=== PATIENT | male | born 1970 | race Caucasian/White ===

== ENCOUNTER 2024-02-28 14:32 | Observation (INO) | payer BC ==
[2024-02-28] MEDS ORDERED: FUROSEMIDE 40 MG/4 ML VIAL ONE (15:03)
[2024-02-28 16:10] LABS: Absolute Basophils 0.1 K/uL (0-0.5); Absolute Eosinophils 0.2 K/uL (0-0.5); Absolute Lymphocytes (CBC) 1.2 K/uL (0.7-4.9); Absolute Monocytes 0.8 K/uL (0.1-1.3); Absolute Neutrophil 4.2 K/uL (1.8-8.0); Basophils % 1.3 % (0-1.3); Eosinophils % 3.3 % (0-4.4); Hematocrit 42.6 % (39.6-49.0); Hemoglobin 14.7 g/dL (13.6-17.9); Lymphocytes % 18.7 % (15.3-44.8); MCH 30.2 pg (27.0-35.0); MCHC 34.5 g/dL (32.0-36.0); MCV 87.6 fL (80-100); MPV 8.2 fL (7.6-11.3); Monocytes % 12.1 % (3.3-12.3); Neutrophils % 64.6 % (41.7-73.7); Nucleated Red Blood Cells % 0.1 % (0-0); Platelets 286 thou/uL (152-406); RBC Red Blood Cell Count 4.87 M/uL (4.33-5.43); Red Cell Distribution Width 13.5 % (12.1-15.2)
[2024-02-28 16:13] LABS: PT Prothrombin Time 12.5 SECONDS (9.4-12.5); Protime INR 1.12
[2024-02-28 16:33] LABS: Albumin 3.7 g/dL (3.4-5.0); Anion Gap 9.8 mEq/L (5.0-15.0); Bilirubin Direct 0.2 mg/dL (0-0.2); Bilirubin Indirect, Calculated 0.4 mg/dL (0.2-0.8); Bilirubin Total 0.6 mg/dL (0.2-1.0); Globulin 3.7 g/dL (2.3-3.5); Magnesium 2.1 mg/dL (1.6-2.4); Potassium 2.8 mEq/L (3.5-5.1); Protein, Total 7.4 g/dL (6.4-8.2); Troponin High Sensitivity 7.9 pg/mL (<58.9)
--- NOTE | 2024-02-28 17:21 | RAD REPORT ---
EXAM DESCRIPTION: Lisbeth Single View02/28/2024 3:26 pm CLINICAL HISTORY: Chest pain;Dyspnea COMPARISON: No comparisons TECHNIQUE: Portable AP view of the chest. FINDINGS: The lungs are clear. No pneumothorax or effusion. The cardiomediastinal contours are unre markable. IMPRESSION: No acute cardiopulmonary process.
[2024-02-28] MEDS ORDERED: POTASSIUM 25 MEQ EFFERV TAB ONE (17:42)
[2024-02-28] MEDS ORDERED: ACETAMINOPHEN 500 MG TAB ONE (17:42)
--- NOTE | 2024-02-28 17:52 | ER ---
Nurse's Notes [facility] Name: Fantasma Calderón Age: 53 yrs Sex: Male : 1970 Arrival Date: 02/28/2024 Time: 14:32 Bed 14 Private MD: Diagnosis: Chest pain, unspecified;Acute diastolic (congestive) heart failure;Hypokalemia Presentation: 02/27 14:38 Chief complaint: Patient states: Pt states Lane leg and feet swelling with difficulty dd2 walking and pain. Pt states coughing up green phlegm and having chest pain. Coronavirus screen: At this time, the client does not indicate any symptoms associated with coronavirus-19. Ebola Screen: No symptoms or risks identified at this time. Initial Sepsis Screen: Does the patient meet any 2 criteria? No. Patient's initial sepsis screen is negative. Does the patient have a suspected source of infection? No. Patient's initial sepsis screen is negative. Risk Assessment: Do you want to hurt yourself or someone else? Patient reports no desire to harm self or others. Onset of symptoms is unknown. 14:38 Method Of Arrival: Ambulatory dd2 14:38 Acuity: PRESTON 3 dd2 Triage Assessment: 14:41 General: Appears in no apparent distress. Behavior is calm, cooperative. Pain: dd2 Complains of pain in chest. Cardiovascular: Reports chest pain. Historical: - Allergies: 14:41 No Known Allergies; dd2 - PMHx: 14:41 Hypertensive disorder; dd2 - PSHx: 14:41 Repair of inguinal hernia; dd2 - Immunization history:: Adult Immunizations unknown. - Infectious Disease History:: Denies. - Social history:: Smoking status: Patient denies any tobacco usage or history of. Screenin:54 [facility] ED Fall Risk Assessment (Adult) History of falling in the last 3 months, cm10 including since admission No falls in past 3 months (0 pts) Confusion or Disorientation No (0 pts) Intoxicated or Sedated No (0 pts) Impaired Gait No (0 pts) Mobility Assist Device Used No (0 pt) Altered Elimination No (0 pt) Score/Fall Risk Level 0 - 2 = Low Risk Oriented to surroundings, Maintained a safe environment, Hourly rounding (assess needs \T\ fall precautionary measures) done. Abuse screen: Denies threats or abuse. Denies injuries from another. Nutritional screening: No deficits noted. Tuberculosis screening: No symptoms or risk factors identified. Assessment: 15:20 General: Appears in no apparent distress. Behavior is calm, cooperative. Pain: kj2 Complains of pain in chest and left leg and right leg Pain does not radiate. Pain currently is 6 out of 10 on a pain scale. Pain began 2-3 days ago. Neuro: Level of Consciousness is awake, alert, obeys commands, Oriented to person, place, time, situation. 17:01 Reassessment: Patient appears in no apparent distress at this time. Patient and/or kj2 family updated on plan of care and expected duration. Pain level reassessed. Patient is alert, oriented x 3, equal unlabored respirations, skin warm/dry/pink. 19:10 Reassessment: Patient and/or family updated on plan of care and expected duration. Pain rg5 level reassessed. Patient is alert, oriented x 3, equal unlabored respirations, skin warm/dry/pink. Patient states feeling better. Vital Signs: 14:38 BP 133 / 75; Pulse 80; Resp 16; Temp 97.2; Pulse Ox 98% ; dd2 15:20 BP 123 / 82; Pulse 75; Resp 18; Temp 98.7; Pulse Ox 98% on R/A; Weight 112.94 kg; kj2 Height 6 ft. 3 in. ; Pain 6/10; 17:33 BP 122 / 75; Pulse 68; Resp 18; Pulse Ox 98% on R/A; kj2 19:10 BP 124 / 83; Pulse 64; Resp 17; Temp 98; Pulse Ox 96% on R/A; rg5 19:12 BP 124 / 83; Pulse 67; Resp 18; Temp 98.2; Pulse Ox 96% on R/A; kj2 15:20 Body Mass Index 31.12 (112.94 kg, 190.5 cm) kj2 15:20 Pain Scale: Adult kj2 ED Course: 14:34 Patient arrived in ED. im 14:34 Liset Nelson PA-C is PHCP. sb4 14:34 Clinton Neri MD is Attending Physician. sb4 14:41 Triage completed. dd2 14:41 Arm band placed on right wrist. Patient placed in an exam room, on a stretcher, on dd2 emergency medical technician basic, on pulse oximetry. 14:59 Florencia Ng, RN is Primary Nurse. kj2 15:22 No provider procedures requiring assistance completed. Missed attempt(s): 20 gauge in kj2 right antecubital area. 15:28 XRAY Chest (1 view) In Process Unspecified. EDMS 15:53 Patient has correct armband on for positive identification. Placed in gown. Bed in low cm10 position. Call light in reach. Side rails up X2. Provided Education on: ER process and procedures.. Client placed on continuous cardiac and pulse oximetry monitoring. NIBP monitoring applied. ship's cook on. 15:53 Initial lab(s) drawn, by me, held in ED. Inserted saline lock: 20 gauge in left cm10 antecubital area, using aseptic technique. Blood collected. Flushed with 10 mL NS. Patient maintains SpO2 saturation greater than 95% on room air. 16:04 Warm blanket given. cm10 17:50 Douglas Ballard MD is Hospitalizing Provider. sb4 18:11 1811 Attempted initial assessment, patient being transported to CT .1822 CM met with ane patient and his Rolf at the bedside in the ED exam room. Patient identified by name and . Demographic sheet confirmed. Patient states he lives with his Rolf and their 2 children in a single story home. Patient reports prior to admission, he performs ADLs independently and without physical limitations. No HH, DME , home oxygen or other medical services at this time. MPOA service requested. MPOA document completed at the bedside. 's preferred plan is to return home upon discharge and Rolf states she will transport him home. CM team will continue to follow and coordinate care. 18:18 Head Brain Wo Cont CT In Process Unspecified. EDMS 19:10 Awaiting bed assignment. rg5 19:10 1910 MPOA scanned into the EMR in [employer]. ane 19:10 Patient admitted, IV remains in place. rg5 19:15 Report given to CRISTA Reyes. kj2 Administered Medications: 15:51 Drug: Furosemide IVP 40 mg IVP once; give over 2 minutes Route: IVP; Site: left cm10 antecubital; 16:42 Follow up: Response: No adverse reaction 10 17:47 Drug: Potassium PO Effervescent Tablet 50 mEq PO once; dissolve in 4 ounces of water or kj2 juice Route: PO; 18:30 Follow up: Response: No adverse reaction kj2 17:47 Drug: Acetaminophen PO 1000 mg PO once Route: PO; kj2 18:30 Follow up: Response: No adverse reaction; Pain is decreased kj2 Medication: 15:54 VIS not applicable for this client. cm10 Outcome: 17:51 Decision to Hospitalize by Provider. sb4 20:20 Admitted to Med/surg accompanied by tech, via wheelchair, rg5 20:20 Condition: stable 20:20 Demonstrated understanding of 20:21 Patient left the ED. rg5 Signatures: Dispatcher [employer] EDMS Liset Nelson PA-C PAJennifer sb4 Naty Gage Clarissa RN RN cm10 Eric Pavon RN RN rg5 Florencia Ng, RN RN kj2 Reba Varma RN ESTRELLA Farmer RN RN dd2 Corrections: (The following items were deleted from the chart) 14:45 14:38 Chief complaint: Patient states: Pt states Lane leg and feet swelling with dd2 difficulty walking and pain. Pt states coughing up green phlegm. dd2
--- NOTE | 2024-02-28 17:52 | EDPHYS ---
Physician Documentation [facility] Name: Fantasma Calderón Age: 53 yrs Sex: Male : 1970 Arrival Date: 02/28/2024 Time: 14:32 Bed 14 Private MD: ED Physician Clinton Neri HPI: 02/27 14:59 This 53 yrs old Male presents to ER via Ambulatory with complaints of Chest Pain, Leg sb4 Swelling. 14:59 intermittent chest pain for quite some time now, recently started experiencing lower sb4 extremity swelling, corona, and orthopnea. went to [facility] last week, admitted for a day, discharged with no new diagnoses. states the swelling in his legs has worsened. was told to follow up with cardiology in a month. Historical: - Allergies: 14:41 No Known Allergies; dd2 - PMHx: 14:41 Hypertensive disorder; dd2 - PSHx: 14:41 Repair of inguinal hernia; dd2 - Immunization history:: Adult Immunizations unknown. - Infectious Disease History:: Denies. - Social history:: Smoking status: Patient denies any tobacco usage or history of. ROS: 14:59 Constitutional: Negative for fever, chills, and weight loss, sb4 14:59 Cardiovascular: Positive for chest pain, edema, 14:59 Respiratory: Positive for dyspnea on exertion, orthopnea, 14:59 All other systems are negative, Exam: 15:00 Constitutional: This is a well developed, well nourished patient who is awake, alert, sb4 and in no acute distress. Head/Face: Normocephalic, atraumatic. Eyes: Extra-ocular motions intact. Periorbital areas with no swelling, redness, or edema. ENT: Mucous membranes moist. Respiratory: Lungs have equal breath sounds bilaterally, clear to auscultation and percussion. No rales, rhonchi or wheezes noted. No increased work of breathing, no retractions or nasal flaring. Abdomen/GI: Soft, non-tender, no distension. Skin: Warm, dry with normal turgor. Normal color with no rashes, no lesions, and no evidence of cellulitis. 15:00 Cardiovascular: Rate: normal, Rhythm: regular, Pulses: no pulse deficits are appreciated, Edema: pedal edema, that is moderate, ankle edema, that is moderate, Vital Signs: 14:38 BP 133 / 75; Pulse 80; Resp 16; Temp 97.2; Pulse Ox 98% ; dd2 15:20 BP 123 / 82; Pulse 75; Resp 18; Temp 98.7; Pulse Ox 98% on R/A; Weight 112.94 kg; kj2 Height 6 ft. 3 in. ; Pain 6/10; 17:33 BP 122 / 75; Pulse 68; Resp 18; Pulse Ox 98% on R/A; kj2 19:10 BP 124 / 83; Pulse 64; Resp 17; Temp 98; Pulse Ox 96% on R/A; rg5 19:12 BP 124 / 83; Pulse 67; Resp 18; Temp 98.2; Pulse Ox 96% on R/A; kj2 15:20 Body Mass Index 31.12 (112.94 kg, 190.5 cm) kj2 15:20 Pain Scale: Adult kj2 MDM: 14:34 Patient medically screened. sb4 17:51 Data reviewed: vital signs, nurses notes, lab test result(s), EKG, radiologic studies, sb4 and as a result, I will admit patient. Consideration of Admission/Observation Patient was admitted/placed on observation. Counseling: I had a detailed discussion with the patient and/or guardian regarding the historical points, exam findings, and any diagnostic results supporting the discharge/admit diagnosis, lab results, radiology results, the need for further work-up and treatment in the hospital. 02/27 14:56 Order name: Basic Metabolic Panel; Complete Time: 16:34 sb4 02/27 14:56 Order name: CBC with Diff; Complete Time: 16:12 sb4 02/27 14:56 Order name: LFT's; Complete Time: 16:34 sb4 02/27 14:56 Order name: Magnesium; Complete Time: 16:34 sb4 02/27 14:56 Order name: NT PRO-BNP; Complete Time: 16:34 sb4 02/27 14:56 Order name: PT-INR; Complete Time: 16:14 sb4 02/27 14:56 Order name: Troponin HS; Complete Time: 16:34 sb4 02/27 19:01 Order name: Urinalysis w/ reflexes EDMS 02/27 19:01 Order name: CBC with Automated Diff EDMS 02/27 19:01 Order name: CBC with Automated Diff EDMS 02/27 19:01 Order name: Comprehensive Metabolic Panel EDMS 02/27 19:01 Order name: Comprehensive Metabolic Panel EDMS 02/27 19:01 Order name: Troponin High Sensitivity EDMS 02/27 19:01 Order name: Troponin High Sensitivity EDMS 02/27 19:01 Order name: Troponin High Sensitivity EDMS 02/27 19:01 Order name: Troponin High Sensitivity EDMS 02/27 14:56 Order name: XRAY Chest (1 view); Complete Time: 17:22 sb4 02/27 17:58 Order name: Head Brain Wo Cont CT; Complete Time: 18:54 sb4 02/27 14:56 Order name: EKG; Complete Time: 14:56 sb4 02/27 14:56 Order name: Cardiac monitoring; Complete Time: 15:53 sb4 02/27 14:56 Order name: EKG - Nurse/Tech; Complete Time: 15:53 sb4 02/27 14:56 Order name: IV Saline Lock; Complete Time: 15:53 sb4 02/27 14:56 Order name: Labs collected and sent; Complete Time: 15:53 sb4 02/27 14:56 Order name: O2 Per Protocol; Complete Time: 15:53 sb4 02/27 14:56 Order name: O2 Sat Monitoring; Complete Time: 15:53 sb4 02/27 15:53 Order name: Misc. Order: Recollect all labs; Complete Time: 15:57 cm10 EC:49 Rate is 70 beats/min. Rhythm is regular, Normal Sinus Rhythm. MT interval is normal at sb4 132 msec. QRS interval is normal at 100 msec. QT interval is normal at 406 msec. No Q waves. T waves are Normal. No ST changes noted. Clinical impression: Normal ECG and No evidence of ischemia. Interpreted by me. Reviewed by me. Administered Medications: 15:51 Drug: Furosemide IVP 40 mg IVP once; give over 2 minutes Route: IVP; Site: left cm10 antecubital; 16:42 Follow up: Response: No adverse reaction cm10 17:47 Drug: Potassium PO Effervescent Tablet 50 mEq PO once; dissolve in 4 ounces of water or kj2 juice Route: PO; 18:30 Follow up: Response: No adverse reaction kj2 17:47 Drug: Acetaminophen PO 1000 mg PO once Route: PO; kj2 18:30 Follow up: Response: No adverse reaction; Pain is decreased kj2 Disposition Summary: 02/28/24 17:51 Hospitalization Ordered Notes: Hospitalization Status: Observation sb4 Provider: Douglas Ballard Location: Telemetry/MedSurg (observation) sb4 Condition: Fair sb4 Problem: an ongoing problem sb4 Symptoms: have improved sb4 Bed/Room Type: Standard sb4 Room Assignment: 203(02/28/24 19:08) rv1 Diagnosis - Chest pain, unspecified sb4 - Acute diastolic (congestive) heart failure sb4 - Hypokalemia sb4 Forms: - Medication Reconciliation Form sb4 - SBAR form sb4 - Leadership Thank You Letter sb4 Addendum: 03/03/2024 16:09 I was immediately available for consultation during this patient's visit. I did not e c2 personally see the patient or discuss the patient with the KIERSTEN. . Signatures: Dispatcher [employer] Liset Ann PA-C PA-C sb4 Jessica Mccarty rv1 Jackie Delgado, RN RN cm10 Clinton Neri MD MD ec2 Florencia Ng RN RN kj2 ESTRELLA GARCIA RN RN dd2 Corrections: (The following items were deleted from the chart) 02/27 14:56 14:56 BASIC METABOLIC PANEL+C.LAB.BRZ ordered. EDMS EDMS 14:56 14:56 CBC+H.LAB.BRZ ordered. EDMS EDMS 14:56 14:56 HEPATIC FUNCTION+C.LAB.BRZ ordered. EDMS EDMS 14:56 14:56 MAGNESIUM+C.LAB.BRZ ordered. EDMS EDMS 14:56 14:56 PROBNP+C.LAB.BRZ ordered. EDMS EDMS 14:56 14:56 PROTIME (+INR)+COAG.LAB.BRZ ordered. EDMS EDMS 14:56 14:56 Troponin High Sensitivity+C.LAB.BRZ ordered. EDMS EDMS 19:08 17:51 sb4 rv1
--- NOTE | 2024-02-28 18:50 | RAD REPORT ---
EXAM DESCRIPTION: CT - Head Brain Wo Cont - 02/28/2024 6:16 pm CLINICAL HISTORY: HEADACHE COMPARISON: No comparisons TECHNIQUE: Noncontrast head CT images were obtained without IV contrast. Multiplanar reformats were generated and reviewed. All CT scans are performed using dose optimization technique as appropriate and may include automated exposure control or mA/KV adjustment according to patient size. FINDINGS: No intracranial hemorrhage, mass, or edema. Midline structures are unremarkable. Normal ventricular caliber for age. Willingham-white matter differentiation is preserved, without evidence of acute infarct. No abnormal extra- axial fluid collections. Mastoid air cells moderate scattered mucosal thickening throughout the paranasal sinuses. No acute bony findings. IMPRESSION: No evidence of an acute intracranial process.
[2024-02-28] MEDS ORDERED: ONDANSETRON 4 MG/2 ML VIAL IV PRN (18:57)
[2024-02-28] MEDS ORDERED: ACETAMINOPHEN 325 MG TABLET PO PRN (18:57)
--- NOTE | 2024-02-28 19:00 | P.HP ---
Certification for Inpatient Patient admitted to: Observation With expected LOS: <2 Midnights Practitioner: I am a practitioner with admitting privileges, knowledge of patient current condition, hospital course, and medical plan of care. Services: Services provided to patient in accordance with Admission requirements found in Title 42 Section 412.3 of the Code of Federal Regulations Patient History Date of Service: 02/28/24 Reason for admission: Chest Pain History of Present Illness: 53 yrs old Male with past medical history of hypertension who has been complaining of chest discomfort associated with shortness of breath and bilateral lower extremity swelling which has been going on for last 6 weeks and has been progressively worsening and was brought to ER. Patient has been diagnosed with hypertension and has been on amlodipine and hydrochlorothiazide. Patient started having shortness of breath which has progressively getting worse with orthopnea. Patient was seen in [facility] last week and was given nitrates, metoprolol and mild diuretics. Patient has been taking medications regularly but has not been improving his symptoms. Chest pain is retrosternal with radiation to left arm pressure-like feeling, 3 out of 10 in severity Shortness of breath is worse even with minimal exertion and also especially when lying down. Patient was assessed in the ER and is admitted for further management of acute chest pain and to rule out ACS Allergies No Known Allergies Allergy (Verified 02/28/24 21:18) Home medications list reviewed: Yes Home Medications: Allopurinol 300 mg PO DAILY 02/28/24 Aspirin [Aspirin EC 325 MG] 325 mg PO DAILY 02/28/24 Isosorbide Mononitrate [Isosorbide Mononitrate ER] 30 mg PO DAILY 02/28/24 Metoprolol Tartrate 25 mg PO BID 02/28/24 Omeprazole [Prilosec] 40 mg PO DAILY 02/28/24 - Past Medical/Surgical History Past Medical History: Reviewed- Non-Contributory -: HTN Past Surgical History: Reviewed- Non-Contributory - Family History Family History: Reviewed- Non-Contributory - Social History Smoking Status: Never smoker Review of Systems 10-point ROS is otherwise unremarkable Physical Examination - Vital Signs Temperature: 97.2 F Blood Pressure: 132/72 Pulse: 80 Respirations: 18 Pulse Ox (%): 95 - Physical Exam General: Alert, Oriented x3, Mild distress HEENT: Atraumatic, Normocephalic Neck: Supple, 2+ carotid pulse no bruit Respiratory: Clear to auscultation bilaterally, Normal air movement Cardiovascular: Normal pulses, Regular rate/rhythm, Normal S1 S2, Edema Capillary refill: <2 Seconds Gastrointestinal: Soft and benign, W/out hepatosplenomegaly Musculoskeletal: No clubbing, Swelling Integumentary: No rashes, No breakdown Neurological: Normal speech, Cranial nerves 3-12 intact Lymphatics: No axilla or inguinal lymphadenopathy - Studies Laboratory Data (last 24 hrs) 02/28/24 02/28/24 02/28/24 15:56 15:56 15:56 WBC 6.50 Hgb 14.7 Hct 42.6 Plt Count 286 PT 12.5 INR 1.12 Sodium 142 Potassium 2.8 L BUN 10 Creatinine 0.89 Glucose 97 Magnesium 2.1 Total Bilirubin 0.6 AST 18 ALT 28 Alkaline Phosphatase 60 Assessment and Plan - Plan Chest Pain to rule out ACS Will trend cardiac enzymes Will monitor telemetry Started on aspirin and statin EKG did not show any acute changes suggestive of ischemia Will get an echocardiogram Cardiology consult Acute on chronic CHF possibly systolic/diastolic Monitor closely on telemetry Started on aggressive diuresis Continue home medications Titrate as needed Will obtain an echocardiogram Cardiology consult Hypertension Antihypertensives titrated Continue home medications and titrate as needed Hyperlipidemia Continue statin GI/DVT prophylaxis Advanced directive full code Discharge Plan: Home Plan to discharge in: 48 Hours - Advance Directives Does patient have a Living Will: No Does patient have a Durable POA for Healthcare: No - Code Status/Comfort Care Code Status: Full Code Time Spent Managing Pts Care (In Minutes): 48
[2024-02-28 21:47] VITALS: O2SAT 94; BMI 31.1
[2024-02-28] MEDS: KCL 20 MEQ/100 mL IVPB 20 MEQ/100 ML BAG IV SCH (23:51)
[2024-02-28] MEDS: NA CHLORIDE 0.9% 500 ML ONE (23:51)
[2024-02-29 00:40] LABS: Specific Gravity 1.017 (1.005-1.030); Sqamous Epithelial None Seen /HPF (None Seen); Urine Bacteria None Seen /HPF (<20); Urine Bilirubin NEGATIVE (Negative); Urine Blood Negative (Negative); Urine Clarity Turbid (Clear); Urine Color Light-Yellow (Yellow); Urine Culture Reflex Order NOT NEEDED; Urine Glucose NEGATIVE (Negative); Urine Ketones NEGATIVE (Negative); Urine Microscopic Reflex YN ORDER UMIC; Urine Mucus 1+ /HPF (None Seen); Urine Nitrite NEGATIVE (Negative); Urine Protein NEGATIVE (Negative); Urine RBC None Seen /HPF (None Seen); Urine Urobilinogen Normal (Normal); Urine WBC <5 /HPF (<5); Urine pH 7.5 (5.0-7.0)
[2024-02-29] MEDS: FUROSEMIDE 20 MG/ 2ML VIAL IV SCH (05:48)
[2024-02-29] MEDS: carvediloL 3.125 MG TAB PO SCH (06:00)
[2024-02-29 06:33] LABS: Absolute Basophils 0.1 K/uL (0-0.5); Absolute Eosinophils 0.3 K/uL (0-0.5); Absolute Lymphocytes (CBC) 1.5 K/uL (0.7-4.9); Absolute Monocytes 0.8 K/uL (0.1-1.3); Absolute Neutrophil 3.2 K/uL (1.8-8.0); Basophils % 1.3 % (0-1.3); Eosinophils % 4.8 % (0-4.4); Hematocrit 38.7 % (39.6-49.0); Hemoglobin 13.4 g/dL (13.6-17.9); Lymphocytes % 25.2 % (15.3-44.8); MCH 29.9 pg (27.0-35.0); MCHC 34.7 g/dL (32.0-36.0); MCV 86.3 fL (80-100); MPV 7.7 fL (7.6-11.3); Monocytes % 13.2 % (3.3-12.3); Neutrophils % 55.5 % (41.7-73.7); Platelets 259 thou/uL (152-406); RBC Red Blood Cell Count 4.48 M/uL (4.33-5.43); Red Cell Distribution Width 13.2 % (12.1-15.2)
--- NOTE | 2024-02-29 06:36 | P.PN ---
Date of Service: 02/29/24 Subjective Review of Systems 10-point ROS is otherwise unremarkable Physical Examination - Vital Signs reviewed - Physical Exam General: Alert, Oriented x3, Mild distress HEENT: Atraumatic, Normocephalic Neck: Supple, 2+ carotid pulse no bruit Respiratory: Clear to auscultation bilaterally, Normal air movement Cardiovascular: Normal pulses, Regular rate/rhythm, Normal S1 S2, Edema Capillary refill: <2 Seconds Gastrointestinal: Soft and benign, W/out hepatosplenomegaly Musculoskeletal: No clubbing, Swelling Integumentary: No rashes, No breakdown Neurological: Normal speech, Cranial nerves 3-12 intact Lymphatics: No axilla or inguinal lymphadenopathy Assessment and Plan - Plan Chest Pain to rule out ACS Will trend cardiac enzymes Will monitor telemetry Started on aspirin and statin EKG did not show any acute changes suggestive of ischemia Will get an echocardiogram Cardiology consult Acute on chronic CHF possibly systolic/diastolic Monitor closely on telemetry Started on aggressive diuresis Continue home medications Titrate as needed Will obtain an echocardiogram Cardiology consult Hypertension Antihypertensives titrated Continue home medications and titrate as needed Hyperlipidemia Continue statin GI/DVT prophylaxis Advanced directive full code Discharge Plan: Home Plan to discharge in: 48 Hours - Advance Directives Does patient have a Living Will: No Does patient have a Durable POA for Healthcare: No - Code Status/Comfort Care Code Status: Full Code Time Spent Managing Pts Care (In Minutes): 35
[2024-02-29 06:49] LABS: Albumin 3.2 g/dL (3.4-5.0); Albumin/Globulin Ratio 0.9 (1.1-1.8); Anion Gap 7.3 mEq/L (5.0-15.0); Bilirubin Total 0.6 mg/dL (0.2-1.0); Globulin 3.5 g/dL (2.3-3.5); Potassium 3.3 mEq/L (3.5-5.1); Protein, Total 6.7 g/dL (6.4-8.2)
[2024-02-29] MEDS: ENOXAPARIN 40 MG/0.4 ML SQ SCH (08:04)
[2024-02-29] MEDS: KCL 20 MEQ/100 mL IVPB 20 MEQ/100 ML BAG IV SCH (08:37)
[2024-02-29] MEDS: ASPIRIN EC 81 MG TAB PO SCH (08:37)
[2024-02-29] MEDS ORDERED: REGADENOSON 0.4 MG/5 ML SYR IV ONE (10:51)
--- NOTE | 2024-02-29 12:11 | RAD REPORT ---
EXAM DESCRIPTION: NM - Rest Stress Cardiac Imaging - 02/29/2024 11:51 am CLINICAL HISTORY: Chest pain. COMPARISON: None. TECHNIQUE: The patient was administered 9.8 mCi of Tc 99m Sestamibi prior to resting SPECT imaging o f the heart. The patient was then administered 32 point MCi of Tc 99m Sestamibi following exercise or pharmacologic stress. Multiplanar SPECT images were reviewed. FINDINGS: Small area of diminished radiotracer uptake involves the apical and septal left ventricula r myocardium on rest and stress sequences. The left ventricular ejection fraction equals 59% IMPRESSION: Small apparent fixed perfusion defects involving the apical and septal left ventricular myocardium may be secondary to attenuation from overlying soft tissue or infarction No evidence of stress-induced ischemia
[2024-02-29 12:22] VITALS: BP 115/66; TEMP 97
--- NOTE | 2024-02-29 12:34 | P.CNS ---
Date of Consult: 02/29/24 Chief Complaint: Chest Pain History of Present Illness: Patient with PMH of HTN, HLD presented with chest pain, pressure in nature that has been going for a while, associated with SOB, denies dizzy spells, no syncope. Allergies No Known Allergies Allergy (Verified 02/28/24 21:18) Home medications list reviewed: Yes Home Medications: Allopurinol 300 mg PO DAILY 02/28/24 Aspirin [Aspirin EC 325 MG] 325 mg PO DAILY 02/28/24 Isosorbide Mononitrate [Isosorbide Mononitrate ER] 30 mg PO DAILY 02/28/24 Metoprolol Tartrate 25 mg PO BID 02/28/24 Omeprazole [Prilosec] 40 mg PO DAILY 02/28/24 - Past Medical/Surgical History Diabetic: No -: HTN -: GERD -: Gout -: nasal septum repair -: hernia repair -: tonsillectomy - Social History Alcohol use: No CD- Drugs: No Caffeine use: Yes Place of Residence: Home Review of Systems 10-point ROS is otherwise unremarkable Physical Examination Temp Pulse Resp BP Pulse Ox 97 F 65 16 115/66 98 02/29/24 12:00 02/29/24 12:00 02/29/24 12:00 02/29/24 12:00 02/29/24 12:00 General: Alert, In no apparent distress HEENT: Atraumatic, PERRLA, Mucous membr. moist/pink, EOMI, Sclerae nonicteric Neck: Supple, 2+ carotid pulse no bruit, No LAD, Without JVD or thyroid abnormality Respiratory: Clear to auscultation bilaterally, Normal air movement Cardiovascular: Regular rate/rhythm, Normal S1 S2 Gastrointestinal: Normal bowel sounds, No tenderness Musculoskeletal: No tenderness Integumentary: No rashes Neurological: Normal gait, Normal speech, Normal tone, Normal affect Lymphatics: No axilla or inguinal lymphadenopathy Laboratory Data (last 24 hrs) 02/28/24 02/28/24 02/28/24 15:56 15:56 15:56 WBC 6.50 Hgb 14.7 Hct 42.6 Plt Count 286 PT 12.5 INR 1.12 Sodium 142 Potassium 2.8 L BUN 10 Creatinine 0.89 Glucose 97 Magnesium 2.1 Total Bilirubin 0.6 AST 18 ALT 28 Alkaline Phosphatase 60 - Problems (1) Chest pain Current Visit: Yes Status: Acute Plan: patient had a nuclear stress test that is negative for ischemia continue medical management No further cardiac work up needed. (2) HTN (hypertension) Current Visit: Yes Status: Acute Plan: continue patient home medications (3) HLD (hyperlipidemia) Current Visit: Yes Status: Acute Plan: Continue Lipitor 40 mg daily Cardiology will sign off, please call with any questions.
--- NOTE | 2024-02-29 13:28 | EKG ---
Test Date: 2024-02-28 Test Time: 15:46:06 Water Pipe Installer: ADIA MEASUREMENT RESULTS: Intervals: Rate: 70 TX: 132 QRSD: 100 QT: 406 QTc: 438 [place]: P: 52 TX: 132 QRS: 13 T: 42 INTERPRETIVE STATEMENTS: Normal sinus rhythm Normal ECG No previous ECG available for comparison Electronically Signed On 02-29-24 13:26:40 CDT by Dennis Wheeler
--- NOTE | 2024-02-29 13:50 | P.DS ---
Admission Date: 02/28/24 Discharge Date: 02/29/24 Disposition: ROUTINE DISCHARGE Discharge Condition: GOOD Reason for Admission: Chest Pain Brief History of Present Illness: 53 yrs old Male with past medical history of hypertension who has been complaining of chest discomfort associated with shortness of breath and bilateral lower extremity swelling which has been going on for last 6 weeks and has been progressively worsening and was brought to ER. Patient has been diagnosed with hypertension and has been on amlodipine and hydrochlorothiazide. Patient started having shortness of breath which has progressively getting worse with orthopnea. Patient was seen in [facility] last week and was given nitrates, metoprolol and mild diuretics. Patient has been taking medications regularly but has not been improving his symptoms. Chest pain is retrosternal with radiation to left arm pressure-like feeling, 3 out of 10 in severity Shortness of breath is worse even with minimal exertion and also especially when lying down. Patient was assessed in the ER and is admitted for further management of acute chest pain and to rule out ACS - Physical Exam General: Alert, Oriented x3, Mild distress HEENT: Atraumatic, Normocephalic Neck: Supple, 2+ carotid pulse no bruit Respiratory: Clear to auscultation bilaterally, Normal air movement Cardiovascular: Normal pulses, Regular rate/rhythm, Normal S1 S2, Edema Capillary refill: <2 Seconds Gastrointestinal: Soft and benign, W/out hepatosplenomegaly Musculoskeletal: No clubbing, Swelling Integumentary: No rashes, No breakdown Neurological: Normal speech, Cranial nerves 3-12 intact Lymphatics: No axilla or inguinal lymphadenopathy Hospital Course: 53 yrs old Male with past medical history of hypertension who has been complaining of chest discomfort associated with shortness of breath and bilateral lower extremity swelling which has been going on for last 6 weeks and has been progressively worsening and was brought to ER. Serial troponins were negative, he was evaluated by cardiology, had nuclear medicine stress test. Negative for acute ischemia, he is tolerating diet, stable to discharge home, follow-up with cardiology and primary care after discharge Assessment Chest pain had a negative stress test, follow-up with cardiology after discharge Hypertension Hyperlipidemia Medications at discharge Lipitor 40 mg, Aspirin 325 Isorbid 30 mg daily Metoprolol 25 mg twice daily Lasix 20 mg daily Continue home medicines as previously prescribed GOAL: Clear understanding of disease process INSTRUCTIONS: Physician Discharge Instructions: -Follow-up with PCP in 1 to 2 weeks -Please call Dr. Mendoza at [phone] if any questions regarding hospital stay -Please call nursing station at [phone] if any nursing or medication questions -Return to the emergency room if symptoms worsen Diet: ADA, low sodium Activity: Fall precautions Vital Signs/Physical Exam: Temp Pulse Resp BP Pulse Ox 97 F 65 16 115/66 98 02/29/24 12:00 02/29/24 12:00 02/29/24 12:00 02/29/24 12:00 02/29/24 12:00 Laboratory Data at Discharge: WBC 5.80 thou/uL (4.3-10.9) 02/29/24 06:14 Hgb 13.4 g/dL (13.6-17.9) L D 02/29/24 06:14 Hct 38.7 % (39.6-49.0) L 02/29/24 06:14 Plt Count 259 thou/uL (152-406) 02/29/24 06:14 PT 12.5 SECONDS (9.4-12.5) 02/28/24 15:56 INR 1.12 02/28/24 15:56 Sodium 141 mEq/L (136-145) 02/29/24 06:14 Potassium 3.3 mEq/L (3.5-5.1) L D 02/29/24 06:14 BUN 10 mg/dL (7-18) 02/29/24 06:14 Creatinine 0.80 mg/dL (0.70-1.30) 02/29/24 06:14 Glucose 97 mg/dL (74-106) 02/29/24 06:14 Magnesium 2.1 mg/dL (1.6-2.4) 02/28/24 15:56 Total Bilirubin 0.6 mg/dL (0.2-1.0) 02/29/24 06:14 AST 12 U/L (15-37) L 02/29/24 06:14 ALT 25 U/L (16-61) 02/29/24 06:14 Alkaline Phosphatase 52 U/L (45-117) 02/29/24 06:14 Home Medications: Allopurinol 300 mg PO DAILY 02/28/24 Aspirin [Aspirin EC 325 MG] 325 mg PO DAILY 02/28/24 Isosorbide Mononitrate [Isosorbide Mononitrate ER] 30 mg PO DAILY 02/28/24 Metoprolol Tartrate 25 mg PO BID 02/28/24 Omeprazole [Prilosec] 40 mg PO DAILY 02/28/24 Atorvastatin Calcium [Lipitor] 40 mg PO BEDTIME 30 Days #30 tab 02/29/24 Furosemide [Lasix] 20 mg PO DAILY #30 tab 02/29/24 New Medications: Furosemide [Lasix] 20 mg PO DAILY #30 tab Atorvastatin Calcium [Lipitor] 40 mg PO BEDTIME 30 Days #30 tab Physician Discharge Instructions: 53 yrs old Male with past medical history of hypertension who has been complaining of chest discomfort associated with shortness of breath and bilateral lower extremity swelling which has been going on for last 6 weeks and has been progressively worsening and was brought to ER. Serial troponins were negative, he was evaluated by cardiology, had nuclear medicine stress test. Negative for acute ischemia, he is tolerating diet, stable to discharge home, follow-up with cardiology and primary care after discharge Assessment Chest pain had a negative stress test, follow-up with cardiology after discharge Hypertension Hyperlipidemia Medications at discharge Lipitor 40 mg, Aspirin 325 Isorbid 30 mg daily Metoprolol 25 mg twice daily Lasix 20 mg daily Continue home medicines as previously prescribed GOAL: Clear understanding of disease process INSTRUCTIONS: Physician Discharge Instructions: -Follow-up with PCP in 1 to 2 weeks -Please call Dr. Mendoza at [phone] if any questions regarding hospital stay -Please call nursing station at [phone] if any nursing or medication questions -Return to the emergency room if symptoms worsen Diet: ADA, low sodium Activity: Fall precautions Followup: Dennis Wheeler MD [ACTIVE - CAN ADMIT] - 1-2 Weeks NONE,NONE [Primary Care Provider] - Physician Review: Patient Assessed, Agree with Above Assessment and Plan (55) Time spent managing pt's care (in minutes): 55
[2024-02-29] MEDS ORDERED: ATORVASTATIN 40 MG TAB PO SCH (21:00)
--- NOTE | 2024-03-03 07:12 | TREADPHA ---
DX: CHEST PAIN Date of Study: 02/29/2024 Ht: 6' 3 " Wt: 249 lb 0 oz Consulting Physician: JACKELYN MEDICATIONS: TYLENOL, ASPIRIN, LIPITOR, COREG, LOVENOX, LASIX, ZOFRAN, POTASSIUM CHLORIDE HISTORY: 53 YEAR OLD MALE WITH COMPLAINTS OF CHEST PAIN. HISTORY OF HYPERTENSION AND ACID REFLUX. NO SMOKING, OCCASIONAL ALCOHOL USE, NO DRUGS. PHYSICIAL EXAMINATION: RESTING B.P.: 121/80 RESTING H.R.: 65 RESTING EKG: SINUS RHYTHM PROTOCOL: PHARMACOLOGIC EXERCISE TIME: 3:30 B.P. AT PEAK STRESS: 124/80 IMPRESSION: LEXISCAN INJECTED. CARDIOLITE INJECTED. NO CHEST PAIN, NO VENTRICULAR TACHYCARDIA, NO SUPRAVENTRICULAR TACHYCARDIA, NO NAUSEA OR VOMITTING.
--- NOTE | 2024-03-03 07:23 | ECHO ---
HEIGHT: 6 ft 3 in WEIGHT: 249 lb 0 oz DATE OF STUDY: 02/29/[address]: Shamir Ballard DO 2-DIMENSIONAL: YES M.MODE: YES DOPPLER: YES COLOR FLOW: YES TDS: PORTABLE: YES DEFINITY: BUBBLE STUDY: DIAGNOSIS: CHEST PAIN CARDIAC HISTORY: CATHERIZATION: NO SURGERY: NO PROSTHETIC VALVE: NO PACEMAKER: NO MEASUREMENTS (cm) DIASTOLIC (NORMALS) SYSTOLIC (NORMALS) IVSd 1.1 (0.6-1.2) LA Diam 2.6 (1.9-4.0) LVEF 60-65% LVIDd 4.8 (3.5-5.7) LVIDs 3.3 (2.0-3.5) %FS 32% LVPWd 1.3 (0.6-1.2) Ao Diam 3.1 (2.0-3.7) 2 DIMENSIONAL ASSESSMENT: RIGHT ATRIUM: NORMAL LEFT ATRIUM: NORMAL RIGHT VENTRICLE: NORMAL LEFT VENTRICLE: NORMAL TRICUSPID VALVE: TRACE TRICUSPID REGURGITATION MITRAL VALVE: NORMAL PULMONIC VALVE: NORMAL AORTIC VALVE: NORMAL PERICARDIAL EFFUSION: NONE AORTIC ROOT: NORMAL LEFT VENTRICULAR WALL MOTION: NORMAL DOPPLER/COLOR FLOW: NORMAL COMMENTS: 1. NORMAL LEFT VENTRICULAR SYSTOLIC FUNCTION, EJECTION FRACTION 60-65%, NORMAL WALL MOTION 2. NORMAL DIASTOLIC FUNCTION 3. NORMAL FILLING PRESSURE TECHNOLOGIST: AYE TURNER
== END 2024-02-29 15:25 | disposition home or self-care (01) ==
LOC: ER 14:32 → ERHOLD 18:57 → 2ND 20:04
PROVIDERS: ADMIT Family Medicine; ATTEND Hospitalist
DX: R07.9 Chest pain, unspecified (principal); I50.33 Acute on chronic diastolic (congestive) heart failure; I10 Essential (primary) hypertension; R06.02 Shortness of breath; R22.43 Localized swelling, mass and lump, lower limb, bilateral; E78.5 Hyperlipidemia, unspecified; Z79.82 Long term (current) use of aspirin
CPT/HCPCS: 93005; 93306; 85025 ×2; 81001; 80048; 36415; 83735; 84132; 85610; 80076; 84484 ×3; 80053; 83880; 70450; 71045; 78452; 96374; 99285; J3480 ×5; J2785; J1940 ×2; J7040; A9500; G0378 ×3; 93017